=== PATIENT | male | born 1955 | race Hispanic/Latino ===

== ENCOUNTER 2017-05-19 18:59 | Emergency (ER) | payer SELFPAY ==
[2017-05-19] MEDS ORDERED: DiphenhydrAMINE 50 mg/ml Inj IV STA (19:32)
[2017-05-19] MEDS ORDERED: Sodium Chloride 0.9% 1,000 ML IV STA (19:32)
[2017-05-19 19:45] LABS: BASO % 0.3 % (0.0-2.0); EOS # 0.5 K/uL (0.0-0.7); EOS % 3.3 % (0.0-4.0); HEMOGLOBIN 15.2 g/dL (12.0-18.0); LYMPH # 2.2 K/uL (1.0-4.3); LYMPH % 15.8 % (20.0-40.0); MEAN CELL VOLUME 89.7 fl (80.0-94.0); MEAN CORPUSCULAR HEMOGLOBIN 30.3 pg (27.0-31.0); MEAN CORPUSCULAR HGB CONC 33.8 g/dL (33.0-37.0); MEAN PLATELET VOLUME 8.4 fl (7.2-11.7); NEUT # 10.1 K/uL (1.8-7.0); NEUT % 73.6 % (50.0-75.0); NRBC % 0.1 % (0.0-0.0); RBC 5.02 Mil/uL (4.40-5.90); WHITE BLOOD COUNT 13.8 K/uL (4.8-10.8)
[2017-05-19 19:59] LABS: ALB/GLOB RATIO 1.3 (1.0-2.1); ALT/SGPT 33 U/L (21-72); AST/SGOT 27 U/L (17-59); BLOOD UREA NITROGEN 15 mg/dl (9-20); CALCIUM 8.8 mg/dL (8.4-10.2); GFR AFRICAN-AMERICAN > 60; GFR NON-AFRICAN AMERICAN > 60
--- NOTE | 2017-05-19 21:04 | ED PDOC ---
HPI: General Adult Time Seen by Provider: 05/19/17 19:15 Chief Complaint (Nursing): Abnormal Skin Integrity Chief Complaint (Provider): Allergic reaction History Per: Patient History/Exam Limitations: no limitations Onset/Duration Of Symptoms: Mins Have you had recent travel within the past 21 days to any of the following countries: [place], [place], [place] or [place]?: No Current Symptoms Are (Timing): Still Present Severity: Moderate Additional History Per: Patient Additional Complaint(s): The patient is a 61yo male, PMHx of asthma, brought to the ED by EMS for evaluation s/p a witnessed syncopal episode. Pt reports the duration of his syncopal episode was between 30 seconds to 1 minute. States just prior to the event, he had developed a generalized, severely pruritic rash. States prior to the syncopal episode, he recalls using his inhaler as a precaution. Pt reports he is uncertain as to what allergen caused the rash; additionally states for the past 2 months, he has had recurrent hives with this episode as the worst. Pt states while he was scratching, he felt light headed after which he felt. Pt reports an abrasion to the back of his head. Upon arrival, pt is still with rash but denies any light headedness. Patient also denies any sensations of throat swelling, shortness of breath, nausea, vomiting or diarrhea. Currently offers no additional medical complaints. Past Medical History Reviewed: Historical Data, Nursing Documentation, Vital Signs Vital Signs: Last Vital Signs Temp 98.8 F 05/19/17 22:32 Pulse 83 05/19/17 22:32 Resp 17 05/19/17 22:32 BP 116/78 05/19/17 22:32 Pulse Ox 97 05/19/17 22:32 - Medical History PMH: Asthma - Surgical History Surgical History: No Surg Hx - Family History Family History: States: Unknown Family Hx - Social History Current smoker - smoking cessation education provided: No Alcohol: None Drugs: Denies - Home Medications Home Medications: Ambulatory Orders Medication Instructions Recorded Cetirizine HCl [Zyrtec] 10 mg PO QAM #10 capsule 05/19/17 Epinephrine HCl [Epipen 0.3 mg MR PRN PRN #1 ml 05/19/17 Auto-Injector] Famotidine [Pepcid] 20 mg PO Q12 #14 tab 05/19/17 Methylprednisolone [Medrol Dosepak] 4 mg PO ASDIR #1 pkg 05/19/17 - Allergies Allergies/Adverse Reactions: Allergies Allergy/AdvReac Type Severity Reaction Status Date / Time No Known Allergies Allergy Verified 05/19/17 19:05 Review of Systems ROS Statement: Except As Marked, All Systems Reviewed And Found Negative ENT: Negative for: Throat Swelling Cardiovascular: Positive for: Light Headedness Respiratory: Negative for: Shortness of Breath Gastrointestinal: Negative for: Nausea, Vomiting, Diarrhea Skin: Positive for: Rash, Other (pruritus) Neurological: Positive for: Other (syncope) Physical Exam - Reviewed Nursing Documentation Reviewed: Yes Vital Signs Reviewed: Yes - Physical Exam Appears: Positive for: Well, Non-toxic, No Acute Distress Head Exam: Positive for: NORMAL INSPECTION, NORMOCEPHALIC. Negative for: ATRAUMATIC (abrasion to occipital region of head) Skin: Positive for: Warm, Dry, Pallor (urticarial rash all over body) Eye Exam: Positive for: Normal appearance, EOMI, PERRL ENT: Positive for: Pharynx Is (clear; dry mucus mebranes) Neck: Positive for: Normal, Supple Cardiovascular/Chest: Positive for: Regular Rate, Rhythm Respiratory: Positive for: Normal Breath Sounds. Negative for: Wheezing, Respiratory Distress Gastrointestinal/Abdominal: Positive for: Normal Exam Extremity: Positive for: Normal ROM. Negative for: Deformity, Swelling Neurologic/Psych: Positive for: Alert, Oriented. Negative for: Motor/Sensory Deficits - Laboratory Results Result Diagrams: 05/19/17 19:30 05/19/17 19:30 - ECG O2 Sat by Pulse Oximetry: 98 (RA) Pulse Ox Interpretation: Normal - Critical Care Total Time (In Min): 30 Documented Critical Care: Time excludes all time spent performint seperately billable procedures Medical Decision Making Medical Decision Making: Time: 1928 Impression: 61yo male w/ anaphalactoid reaction, unknown allergen and associated syncopal episode Plan: -- EKG -- benadryl -- Pepcid -- Solumedrol -- IV Fluids Reassess Time: 1934 Pt is currently declining medication. Counseled on importance of compliance with current coourse due to risk of late phase anaphalyxis. Pt states he wants to "watch himself" for an hour. Time: 2030 Pt agrees to course. Declining CT Head. Time: 2300 Pt with marked improvement of symptoms. Will refer to an message and delivery service pricer for follow up. Stable for discharge home. Scribe Attestation: Documented by Mariella Carter acting as a scribe for Jadon Dunn MD. Provider Attestation: All medical record entries made by the Scribe were at my direction and personally dictated by me. I have reviewed the chart and agree that the record accurately reflects my personal performance of the history, physical exam, medical decision making, and the department course for this patient. I have also personally directed, reviewed, and agree with the discharge instructions and disposition. Disposition - Clinical Impression Clinical Impression: Anaphylactic reaction - Disposition Referrals: Rajan Olmos MD [Staff Provider] - Disposition: Routine/Home Disposition Time: 23:00 Condition: IMPROVED Prescriptions: Cetirizine HCl [Zyrtec] 10 mg PO QAM #10 capsule Epinephrine HCl [Epipen Auto-Injector] 0.3 mg MR PRN PRN #1 ml PRN Reason: Anaphylaxis Famotidine [Pepcid] 20 mg PO Q12 #14 tab Methylprednisolone [Medrol Dosepak] 4 mg PO ASDIR #1 pkg Instructions: Urticaria (ED), Anaphylaxis (ED) Print Language: DIVEHI
[2017-05-19 22:32] VITALS: BP 116/78; PULSE 83; RESP 17; TEMP 98.8
[2017-05-19 23:00] VITALS: O2SAT 98
--- NOTE | 2017-05-20 14:52 | CARD ---
APPROVED REPORT EKG Measurement Heart [id number] <Conclusion> Normal sinus rhythm Normal ECG
== END 2017-05-19 23:46 | disposition home or self-care (01) ==
LOC: MERGE 18:59 → EDBD 18:59 → H.ER 18:59
DX: R55 Syncope and collapse (principal); T78.2XXA Anaphylactic shock, unspecified, initial encounter
CPT/HCPCS: 80053; 82948; 85025; 93005; 96374; 99283; J1200; J2930; J7040